=== PATIENT | female | born 1985 | race Caucasian/White ===

== ENCOUNTER 2016-07-09 04:36 | Observation (INO) | payer MEDICAID, OTHER ==
[~2016-07-09] VITALS: Ht 165.1 cm; Wt 68.0 kg
[~2016-07-09 04:36] MED LIST: EST0625T PO; NOR10T PO; ONDA4TAB5 PO
[2016-07-09] MEDS ORDERED: LORazepam 2MG/ML-1ML VIAL IV ONE (05:00)
[2016-07-09 06:27] LABS: Basophils # (auto) 0 uL; Basophils % (auto) 0.4 % (0.0-2.0); Eosinophils # (auto) 0 uL; Eosinophils % (auto) 0.4 % (0.0-7.0); Hematocrit 43.2 % (36.0-46.0); Hemoglobin 14.7 g/dL (12.2-16.2); Lymphocytes # (auto) 3.1 uL; Lymphocytes % (auto) 42.7 % (10.0-50.0); Mean Corpuscular Hemoglobin 29.9 pg (28.0-32.0); Mean Platelet Volume 9.1 fL (7.4-10.4); Monocytes # (auto) 0.5 uL; Monocytes % (auto) 7.3 % (0.0-12.0); Neutrophils # (auto) 3.6 uL; Neutrophils % (auto) 49.2 % (37.0-80.0); Platelet Count (auto) 258 10^3/uL (140-450); Red Cell Distribution Width 13.1 % (11.6-16.0); White Blood Cell 7.4 10^3/uL (4.4-10.8)
[2016-07-09 06:45] LABS: Acetaminophen < 2.0 ug/mL (10-30); Salicylate < 1.7 mg/dL (2.8-20.0)
[2016-07-09 06:46] LABS: Albumin 3.7 g/dL (3.4-5.0); Anion Gap 11 (5-15); Blood Urea Nitrogen 8 mg/dL (7-18); Calcium 8.9 mg/dL (8.5-10.1); Carbon Dioxide 25 mmol/L (21-32); Chloride 107 mmol/L (98-107); Magnesium 2.4 mg/dL (1.6-2.6); Sodium 143 mmol/L (136-145)
[2016-07-09 06:49] LABS: Aspartate Aminotransferase 21 U/L (15-37); BUN/Creatinine Ratio 10.3; GFR African American 112 mL/min; GFR Non-African American 93 mL/min; Glucose 111 mg/dL (74-106)
[2016-07-09 06:51] LABS: Alkaline Phosphatase 57 U/L (45-117); Bilirubin, Total 0.8 mg/dL (0.2-1.0)
[2016-07-09 06:59] LABS: Potassium 2.8 mmol/L (3.5-5.1)
[2016-07-09] MEDS ORDERED: ONDANSETRON HCL 4 MG/2 ML VIAL IV ONE (07:15)
[2016-07-09] MEDS ORDERED: POTASSIUM CHL 20 Meq TABLET PO ONE (07:15)
[2016-07-09] MEDS ORDERED: SODIUM CHLORIDE 0.9% 1,000 ML IV ONE ×2 (10:04→11:24)
[2016-07-09] MEDS ORDERED: NALOXONE HCL 0.4 MG/ML VIAL IV ONE (10:15)
[2016-07-09 10:47] LABS: Urine Bilirubin Negative (Negative); Urine Blood Negative /uL (Negative); Urine Color Yellow (Yellow); Urine Glucose Normal (Normal); Urine Ketone Negative (Negative); Urine Mucus FEW (None Seen); Urine Nitrite Negative (Negative); Urine RBC 1 /hpf (0 - 4); Urine pH 5.5 (5.0-8.0)
[2016-07-09] MEDS ORDERED: NITROFURANTOIN (MONO) 100 mg CAP PO ONE ×2 (11:30→12:45)
[2016-07-09 14:20] VITALS: BP 112/75
== END 2016-07-09 19:04 | disposition home or self-care (01) | DRG 897 ==
LOC: ER 04:36 → OVERFLOW 12:47 → ER 19:04
PROVIDERS: ADMIT Emergency Medicine; ATTEND Emergency Medicine
DX: F15.90 Other stimulant use, unspecified, uncomplicated (principal); E87.6 Hypokalemia; F41.9 Anxiety disorder, unspecified; Z83.3 Family history of diabetes mellitus; Z82.49 Family history of ischemic heart disease and other diseases of the circulatory system
CPT/HCPCS: 36415; 70450; 80053; 80178; 80307; 80320; 80329; 81001; 81025; 83735; 85025; 96361; 96374; 96375; 99285; G0378; J2060; J2310; J2405; J7030